=== PATIENT | female | born 1965 | race Caucasian/White ===

== ENCOUNTER 2020-07-07 11:45 | Outpatient (REF) | payer OTHER, SELFPAY ==
[2020-07-07 12:48] LABS: MANUAL DIFF FLAG NO
[2020-07-07 12:54] LABS: Glucose Urine UA NEG (NEG); Leukocyte Esterase Urine NEG (NEG); Nitrite Urine NEG (NEG); Specific Gravity - Urine 1.015 (1.005-1.025); Urine Blood TRACE (NEG); Urine Ketones NEG (NEG); Urine Protein NEG (NEG-TRACE)
[2020-07-07 12:57] LABS: Basophils Absolute Auto 0.1 X10*3/uL (0.0-0.2); Basophils Percent Auto 0.5 % (0-2); Eosinophils Absolute Auto 0.1 X10*3/uL (0.0-0.4); Eosinophils Percent Auto 0.9 % (0-4); Hematocrit 43.9 % (37-47); Hemoglobin 14.3 g/dl (12.0-16.0); Imm Gran Abs Auto 0.02 X10*3/uL (0.00-0.03); Imm Gran Pct Auto 0.2 % (0.0-0.4); Lymphocytes Absolute Auto 2.9 X10*3/uL (1.2-4.9); Lymphocytes Percent Auto 31.4 % (20-40); Mean Corpuscular HGB Conc 32.6 g/dl (31.0-35.0); Mean Corpuscular Hemoglobin 31.5 pg (27.0-33.0); Mean Corpuscular Volume 96.7 fL (80-98); Mean Platelet Volume 10.4 fL (9.4-12.3); Monocytes Absolute Auto 0.6 X10*3/uL (0.1-1.2); Monocytes Percent Auto 6.2 % (2-11); Neutrophils Absolute Auto 5.6 X10*3/uL (2.0-8.3); Neutrophils Percent Auto 60.8 % (45-73); Platelet Count 375 X10*3/uL (160-400); Red Blood Count 4.54 X10*6/uL (4.20-5.50); Red Cell Distribution Width 11.8 % (11.0-16.0); White Blood Count 9.2 X10*3/uL (4.8-10.8)
[2020-07-07 13:04] LABS: Appearance Urine CLEAR; Color Urine YELLOW
[2020-07-07 13:09] LABS: Alanine Aminotransferase 20 U/L (0-31); Albumin Level 3.8 g/dL (3.5-5.0); Alkaline Phosphatase 57 U/L (39-117); Anion Gap 14 (12-20); Aspartate Amino Transferase 15 U/L (5-31); Bilirubin Total 0.9 mg/dL (0.0-1.0); Blood Urea Nitrogen 20 mg/dL (9-16); C Reactive Protein 0.68 mg/dL (< or = 0.50); Calcium 8.9 mg/dL (8.4-10.2); Carbon Dioxide 25 mmol/L (22-29); Chloride 103 mmol/L (96-108); Estimated Glomerular Filt Rate > 60; Glucose Random 66 mg/dL (60-115); Potassium 4.7 mmol/L (3.3-5.1); Sodium 137 mmol/L (135-145); Total Protein 6.5 g/dL (6.5-8.0)
[2020-07-07 14:03] LABS: Erythrocyte Sedimentation Rate 6 MM/HR (0-20)
[2020-07-07 14:40] LABS: Bacteria Urine TRACE /LPF; RBC Urine 0-2 /HPF (0); Squamous Epithelial Cell Urine 4+ /LPF; WBC Urine 0 /HPF (0-4)
[2020-07-08 14:16] LABS: Complement C3 131 mg/dL (83-193)
[2020-07-08 14:42] LABS: Anti DNA DS Antibody 2 IU/mL
== END 2020-07-07 11:46 | disposition home or self-care (01) ==
LOC: HO.LAB 11:45
PROVIDERS: PCP Registered Nurse Rehabilitation; Visit Provider Student in an Organized Health Care Education/Training Program
DX: R76.8 Other specified abnormal immunological findings in serum (principal)
CPT/HCPCS: 36415; 80053; 81001; 85025; 85652; 86140; 86160; 86225

== ENCOUNTER → 2020-09-16 16:07 | Outpatient (BNVA) | payer OTHER, SELFPAY | PROVIDERS: Visit Provider Student in an Organized Health Care Education/Training Program ==

== ENCOUNTER 2021-10-31 15:25 | Outpatient (REF) | payer OTHER, SELFPAY ==
[2021-10-31 15:47] LABS: MANUAL DIFF FLAG NO
[2021-10-31 16:32] LABS: Basophils Absolute Auto 0.1 X10*3/uL (0.0-0.2); Basophils Percent Auto 0.8 % (0-2); Eosinophils Absolute Auto 0.1 X10*3/uL (0.0-0.4); Eosinophils Percent Auto 1.4 % (0-4); Hematocrit 43.4 % (37.0-47.0); Hemoglobin 14.9 g/dl (12.0-16.0); Imm Gran Abs Auto 0.01 X10*3/uL (0.00-0.03); Imm Gran Pct Auto 0.1 % (0.0-0.4); Lymphocytes Absolute Auto 3.5 X10*3/uL (1.2-4.9); Mean Corpuscular HGB Conc 34.3 g/dl (31.0-35.0); Mean Corpuscular Hemoglobin 32.3 pg (27.0-33.0); Mean Corpuscular Volume 94.1 fL (80.0-98.0); Mean Platelet Volume 10.6 fL (9.4-12.3); Monocytes Absolute Auto 0.7 X10*3/uL (0.1-1.2); Monocytes Percent Auto 7.8 % (2-11); Neutrophils Percent Auto 47.9 % (45-73); Platelet Count 370 X10*3/uL (160-400); Red Blood Count 4.61 X10*6/uL (4.20-5.50); Red Cell Distribution Width 11.8 % (11.0-16.0); White Blood Count 8.3 X10*3/uL (4.8-10.8)
[2021-10-31 16:48] LABS: Alanine Aminotransferase 49 U/L (0-31); Albumin Level 3.9 g/dL (3.5-5.0); Alkaline Phosphatase 88 U/L (39-117); Anion Gap 13 (12-20); Aspartate Amino Transferase 23 U/L (5-31); Bilirubin Total 0.9 mg/dL (0.0-1.0); Blood Urea Nitrogen 12 mg/dL (9-16); C Reactive Protein 0.17 mg/dL (< or = 0.50); Carbon Dioxide 27 mmol/L (22-29); Chloride 105 mmol/L (96-108); Estimated Glomerular Filt Rate > 60; Glucose Random 97 mg/dL (60-115); Potassium 4.5 mmol/L (3.3-5.1); Sodium 140 mmol/L (135-145)
[2021-10-31 17:17] LABS: Erythrocyte Sedimentation Rate 7 MM/HR (0-20)
[2021-10-31 18:25] LABS: Creatinine Urine 121.95 mg/dL; Total Protein Urine Random < 7 mg/dL (<12)
[2021-11-01 12:17] LABS: Anti DNA DS Antibody 2 IU/mL
== END 2021-10-31 15:26 | disposition home or self-care (01) ==
LOC: HO.LAB 15:25
PROVIDERS: PCP Family Medicine; Visit Provider Internal Medicine Rheumatology
DX: R76.8 Other specified abnormal immunological findings in serum (principal)
CPT/HCPCS: 36415; 80053; 84156; 85025; 85652; 86140; 86225

== ENCOUNTER 2022-10-23 08:53 | Outpatient (AMB) | payer OTHER, SELFPAY ==
[2022-10-23 09:04] VITALS: BP 114/74; PULSE 78; TEMP 36.6; O2SAT 98; BMI 34.3
--- NOTE | 2022-10-23 09:04 | A.OFFVIS_ITS ---
Intake Vital Signs 10/23/22 09:04 Height 5 ft 3 in Weight 193 lb 9.054 oz BMI 34.3 BP 114/74 Blood Pressure Location Rt brachial Position Sitting Pulse 78 Pulse Source Pulse Oximeter Temp 97.8 F Temp Source Skin Pulse Oximetry (%) 98 Intake Visit Reasons: anat Intake Note: Pt seen today for 1 year follow up. States she has same symptoms; left knee stairs cause pain. Right shoulder pain- starts PT in November ordered by PCP. Also mentions dry eyes sees Dr Atwood in [place] Strain Technician Required: No Accompanied by: Self / Same As Patient Allergies Sulfa (Sulfonamide Antibiotics) Allergy (Intermediate, Verified 10/23/22 09:10) rash HPI HPI Comments History of Present Illness Details The patient returns for evaluation of her history of positive ANAT. She had been seen in the past by Dr. Anderson and I saw her last fall. There was no sign of an active inflammatory arthritis. There were similar negative findings last December when I had seen her. She continues to have pain in the right knee, usually with stairs. She gets some intermittent right shoulder pain over the past few weeks. Apparently she has been referred to physical therapy for that. Occasionally she gets Raynaud's symptoms as well. She describes dry eyes. This has been treated by an string top sealer with Restasis and Xiidra eye drops. Those were not helpful so recently she acquired punctal plugs. She is disappointed that those have not help with the dryness as well. There is some dryness in the mouth but that is no where near as significantly bothersome. 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 Negative for vision change, headaches and dizziness ENT Details: Occasional dry mouth. Negative for hearing change, tinnitus, oral ulcer, nose bleeds Card Details: Negative chest pain, edema and syncope Resp Details: Negative for SOB, cough and wheezing GI Details: Negative indigestion/heartburn, nausea, abdominal pain, bowel changes, diarrhea, constipation and bloody stool. Skin/Breast Details: Negative for itching, rash, hives, Raynaud's symptoms, sun sensitivity, and skin cancer Endo Details: Negative for polyuria and polydypsia Deondre/Lymph Details: Negative for excessive bruising or bleeding. Physical Exam Vital Signs: Last Vital Signs Temp 97.8 F 10/23/22 09:04 Pulse 78 10/23/22 09:04 BP 114/74 10/23/22 09:04 Pulse Ox 98 10/23/22 09:04 BMI result Body Mass Index 34.3 APPEARANCE: Patient in no acute distress EYES no redness, pupils equal and reactive to light, eyelids normal THROAT: Oral mucosa moist, no ulcerations NECK: No thyromegaly or masses, no adenopathy, trachea midline. HEART: Regulrar rhythm, S1-S2 heard, no murmurs, rubs or gallops. LUNG: Clear to percussion and auscultation ABD: Normal bowel sounds, no organomegaly, masses or tenderness. EXTREMITIES: No edema, no calf tenderness, normal peripheral pulses. NEURO: Oriented and alert x3. No focal weakness. Reflexes symmetric. Gait normal. SKIN: No inflammatory or neoplastic lesions. Normal color and turgor. Some irregularity at the right 3rd fingernail. It looks like she has had some cuticle inflammation with some slight redness there and there is some ridging on the nail. No pitting. No other nail seem to be involved. JOINT EXAM:?? Cervical Spine:.? Full range of motion without pain; no tenderness. Thoracic Spine:.? No scoliosis.? No tenderness on palpation. Lumbar Spine:.? Alignment normal.? Full range of motion without pain, no tenderness. Chest Wall:.? No tenderness, swelling, increased warmth or erythema. Hands:.? Right:? Mild bony enlargement at the thumb IP in slight bony enlargement at the 2nd and 3rd PIP joints.? The 3rd PIP is slightly tender but other areas are not tender.? There is no sensory loss or thenar atrophy.? No objective signs of Raynaud's phenomena.? Left:? There is some flexion deformity and lateral deviation at the 4th middle phalanx.? That 4th PIP has limited range of motion and some slight bony enlargement and minimal tenderness.? She says this is from old fracture.? There are no objective signs of Raynaud's phenomena, thenar atrophy or sensory loss. Wrists:.? Normal pain-free range of motion without tenderness, swelling, increased warmth or erythema.? Negative Phalen's and Tinel signs. Elbows:. Normal pain-free range of motion without tenderness, swelling, increased warmth or erythema. Shoulders:.? Right: Mild discomfort with abduction at 150 degrees or with extremes of internal or external rotation. Mild anterior tenderness with questionable abductor weakness but no swelling or adenopathy.? Full range of motion without pain. No tenderness, weakness, swelling, increased warmth or erythema. Hips:.? Full range of motion without pain. Hip bursa:.? No tenderness. Knees:.??Right: Pain-free range of motion with some mild patellofemoral crepitus. There is some medial compartment tenderness but no redness or effusion. Left: Normal pain-free range of motion with mild patellofemoral crepitus but no effusion, tenderness, swelling, increased warmth or erythema.? Ankles:.? Normal pain-free range of motion without tenderness, swelling, increased warmth or erythema. Feet:.? Normal pain-free range of motion without tenderness, swelling, increased warmth or erythema. Tender points:.? No tenderness to digital palpation at the occiput, trapezius, second rib, lateral epicondyle, knees, greater trochanter and gluteal area bilaterally. ? Results Reviewed Results Reviewed: Laboratory Tests 10/31/21 10/31/21 10/31/21 15:46 15:46 15:46 WBC 8.3 Hgb 14.9 ESR 7 Creatinine 0.77 U Random Total Protein Double Strand DNA Ab 10/31/21 10/31/21 15:46 15:49 WBC Hgb ESR Creatinine U Random Total Protein < 7 Double Strand DNA Ab 2 Assessment & Plan Assessment & Plan (1) ANAT positive: Code(s): R76.8 - Other specified abnormal immunological findings in serum (2) Chondromalacia of both patellae: Code(s): M22.41 - Chondromalacia patellae, right knee; M22.42 - Chondromalacia patellae, left knee (3) Raynauds disease: Code(s): I73.00 - Raynaud's syndrome without gangrene (4) Dry eye syndrome: Code(s): H04.129 - Dry eye syndrome of unspecified lacrimal gland Plan She still is no evidence of an active inflammatory arthritis. She has a bigger complaint now of the ocular dryness. It looks like from review of the chart that a Sjogren's antibody test was ordered in the past but I can not find the results. The ANAT is positive and she has Raynaud's symptoms but again no sign of underlying associated autoimmune inflammatory disease. We will check some chemistries, CBC and inflammatory markers to look into that further. We will get back to her with the results. Quadriceps exercises are demonstrated for her. This should help with the chondromalacia patellae. Physical therapy referral could also be considered. A follow-up in a year might be reasonable if she still has symptoms. Today's history, physical exam, and review of the records took 32 minutes. Orders: Orders C Reactive Protein Today R76.8 - Other specified abnormal immunological findings in serum Protein Creatinine Ratio, Ur Today R76.8 - Other specified abnormal immunological findings in serum Complete Blood Count Auto Diff Today R76.8 - Other specified abnormal immunological findings in serum Erythrocyte Sedimentation Rate Today R76.8 - Other specified abnormal immunological findings in serum Anti DNA DS Antibody Today R76.8 - Other specified abnormal immunological findings in serum Comprehensive Met. Panel Today R76.8 - Other specified abnormal immunological findings in serum Sjogren's Antibodies Today H04.129 - Dry eye syndrome of unspecified lacrimal gland, R76.8 - Other specified abnormal immunological findings in serum Coding Level of Care Code Est Pt Level 4 (83087) Diagnoses ANAT positive R76.8 Chondromalacia of both patellae M22.41; M22.42 Raynauds disease I73.00 Dry eye syndrome H04.129
== END 2022-10-23 09:52 | disposition home or self-care (01) ==
PROVIDERS: PCP Family Medicine; Visit Provider Internal Medicine Rheumatology
DX: R76.8 Other specified abnormal immunological findings in serum (principal); M22.41 Chondromalacia patellae, right knee; M22.42 Chondromalacia patellae, left knee; I73.00 Raynaud's syndrome without gangrene; H04.129 Dry eye syndrome of unspecified lacrimal gland
CPT/HCPCS: 99214

== ENCOUNTER → 2022-10-23 08:53 | Outpatient (BNVA) | payer OTHER, SELFPAY | PROVIDERS: PCP Family Medicine; Visit Provider Internal Medicine Rheumatology ==

== ENCOUNTER 2022-10-23 10:00 | Outpatient (REF) | payer OTHER, SELFPAY ==
[2022-10-23 10:46] LABS: Creatinine Urine 98.44 mg/dL; Protein/Creatinine Ratio, Ur 0.08 (<0.2); Total Protein Urine Random 8 mg/dL (<12)
[2022-10-23 11:18] LABS: MANUAL DIFF FLAG NO
[2022-10-23 11:23] LABS: Basophils Absolute Auto 0.1 X10*3/uL (0.0-0.2); Basophils Percent Auto 0.8 % (0-2); Eosinophils Absolute Auto 0.1 X10*3/uL (0.0-0.4); Imm Gran Abs Auto 0.02 X10*3/uL (0.00-0.03); Imm Gran Pct Auto 0.2 % (0.0-0.4); Lymphocytes Absolute Auto 2.7 X10*3/uL (1.2-4.9); Lymphocytes Percent Auto 32.6 % (20-40); Mean Corpuscular Hemoglobin 31.9 pg (27.0-33.0); Mean Corpuscular Volume 93.6 fL (80.0-98.0); Mean Platelet Volume 10.5 fL (9.4-12.3); Monocytes Absolute Auto 0.6 X10*3/uL (0.1-1.2); Monocytes Percent Auto 7.6 % (2-11); Neutrophils Absolute Auto 4.8 x10*3/uL (2.0-8.3); Neutrophils Percent Auto 57.8 % (45-73); Platelet Count 351 X10*3/uL (160-400); Red Blood Count 5.02 X10*6/uL (4.20-5.50); Red Cell Distribution Width 11.2 % (11.0-16.0); White Blood Count 8.3 X10*3/uL (4.8-10.8)
[2022-10-23 12:09] LABS: Erythrocyte Sedimentation Rate 7 MM/HR (0-20)
[2022-10-23 12:38] LABS: Alanine Aminotransferase 19 U/L (0-31); Alkaline Phosphatase 98 U/L (39-117); Anion Gap 12 (12-20); Aspartate Amino Transferase 15 U/L (5-31); Blood Urea Nitrogen 21 mg/dL (9-16); C Reactive Protein 0.11 mg/dL (< or = 0.50); Calcium 9.4 mg/dL (8.4-10.2); Carbon Dioxide 28 mmol/L (22-29); Chloride 106 mmol/L (96-108); Estimated Glomerular Filt Rate > 60; Glucose Random 89 mg/dL (60-115); Potassium 4.5 mmol/L (3.3-5.1); Sodium 141 mmol/L (135-145); Total Protein 7.2 g/dL (6.5-8.0)
[2022-10-25 17:34] LABS: Anti DNA DS Antibody 2 IU/mL; Antibody to SS-A Antigen <1.0 NEG AI (<1.0 NEG); Antibody to SS-B Antigen <1.0 NEG AI (<1.0 NEG)
== END 2022-10-23 10:01 | disposition home or self-care (01) ==
LOC: HO.10HDL 10:00
PROVIDERS: Visit Provider Internal Medicine Rheumatology
DX: R76.8 Other specified abnormal immunological findings in serum (principal); H04.129 Dry eye syndrome of unspecified lacrimal gland
CPT/HCPCS: 36415; 80053; 84156; 85025; 85652; 86140; 86225; 86235

== ENCOUNTER 2023-10-24 09:24 | Outpatient (AMB) | payer OTHER, SELFPAY ==
--- NOTE | 2023-10-24 09:26 | MHC.OFFVIS ---
Vital Signs 10/24/23 09:37 Height 5 ft 3 in Weight 200 lb 13.458 oz BMI 35.6 BP 112/70 Blood Pressure Location Lt brachial Position Sitting Respiration 16 Pulse 90 Pulse Source Pulse Oximeter Pulse Oximetry (%) 96 Oxygen Delivery Method Room Air Intake Visit Reasons: DAMARIS/CM Intake Note: Patient presents for DAMARIS. Allergies Sulfa (Sulfonamide Antibiotics) Allergy (Intermediate, Verified 10/24/23 09:29) rash Medication List - Last Reconciled 10/24/23 by Angelo Zuluaga MD albuterol sulfate 90 mcg/actuation inhalation PRN cetirizine (Zyrtec) 10 mg PO DAILY PRN cholecalciferol (vitamin D3) 25 mcg PO DAILY cyclosporine 0.05% (Restasis) 1 drp ophthalmic (eye) Q12H estradiol 0.5 mg PO DAILY famotidine 20 mg PO BEDTIME fluticasone propionate 50 mcg/actuation 1 spray intranasal DAILY PRN magnesium 400 mg PO DAILY melatonin mg PO [id number] 1 tab PO DAILY omeprazole 20 mg PO DAILY pravastatin 40 mg PO DAILY progesterone micronized 100 mg PO QAM turmeric root extract 500 mg PO DAILY HPI Comments Details: This is a 57-year-old female who returns for follow-up. Patient has been evaluated by Dr. Leonard since 2019 for a positive [address] 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 Symptoms of arthralgias, sicca symptoms, Raynaud's. Hydroxychloroquine was considered but patient not want to take it. Since then she had been monitored yearly. Patient states that he developed right shoulder pain and stiffness. She was evaluated by Orthopedics and had a right shoulder MRI which showed bursitis and a small tendon hair, she received a steroid shot which was helpful for at least 3 months. She continues to have some right shoulder aches. She gets intermittent swelling of her right foot but no significant pain. Denies any significant rashes. She continues to have significant dry eyes and is on multiple eyedrops. She takes turmeric 1000 mg daily. She denies any fevers or weight loss. 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 Review of Systems Eyes Reports dry eyes ENT Reports dry mouth Musc Reports arthralgias, Reports joint swelling and Reports stiffness Physical Exam Vital Signs: Last Vital Signs Pulse 90 10/24/23 09:37 Resp 16 10/24/23 09:37 BP 112/70 10/24/23 09:37 Pulse Ox 96 10/24/23 09:37 Oxygen Delivery Method Room Air 10/24/23 09:37 BMI result Body Mass Index 35.6 Const General: cooperative, healthy appearing and comfortable Nutritional Appearance: obese Orientation/consciousness: patient oriented x3 Limitations: no limitations HEENT Head: Yes normocephalic and Yes atraumatic Mouth: moist mucous membranes Resp Effort & Inspection: normal respiratory effort and able to speak in complete sentences Auscultation: clear to auscultation bilaterally Cardio Rate: regular rate Rhythm: regular rhythm Skin General skin exam: no rashes or lesions noted Neuro General: patient oriented x3 Extrem Other: No active synovitis Negative MCP squeeze test Normal bilateral hand nursing manager strength Normal nailfold capillaroscopy No elbow pain with flexion and extension Normal range of motion of shoulders No knee pain with full flexion-extension No ankle swelling and tenderness bilaterally Negative MTP squeeze test Results Reviewed Results Reviewed: Labs 09/[address] Leonard? [place] level normal? C3 normal? C4 normal? CPK normal? CMP unremarkable CBC unremarkable Free T4 normal TSH normal RF/HLA B27/beta 2 glycoprotein IgG/beta 2 glycoprotein IgM/cardiolipin IgG/cardiolipin IgM/DNA Crithidia/SSA/SSB/Ruiz/CONTINUOUS VULCANIZING MACHINE OPERATOR/ CCP/Jolene 1/TPO? all negative DAMARIS 1-1280 dfs pattern Assessment & Plan Assessment & Plan (1) DAMARIS positive: Code(s): R76.8 - Other specified abnormal immunological findings in serum Category: Medical Plan: This is a 57-year-old female who presents for evaluation of a positive DAMARIS patient has had a positive DAMARIS 1-12 80 dfs pattern with negative sub serologies. Dr. Leonard suggested hydroxychloroquine for incomplete lupus/UCTD based on arthralgias, sicca symptoms, Raynaud's. Patient did not want to take any medications. Since then patient has been followed about yearly with repeat labs, she continues to have negative sub serologies. On exam I still do not see any meme signs of autoimmune rheumatic disease. Clinical picture more consistent degenerative arthritis. Advised patient to use a Biotene Biotene mouth 4/mirella for dry mouth, increase turmeric to 2000 mg daily Discussed symptoms and signs that are suggestive of an autoimmune rheumatic disease. Advised patient to call the clinic and we can see her sooner Re-evaluate in 1 year Plan I spent 25 minutes reviewing patient's chart, evaluating patient, counseling patient and documenting in the chart Coding Level of Care Code Est Pt Level 3 (37280) Diagnoses DAMARIS positive R76.8
[2023-10-24 09:37] VITALS: BP 112/70; PULSE 90; RESP 16; O2SAT 96; BMI 35.6
== END 2023-10-24 10:06 | disposition home or self-care (01) ==
PROVIDERS: Visit Provider Student in an Organized Health Care Education/Training Program
DX: R76.8 Other specified abnormal immunological findings in serum (principal)
CPT/HCPCS: 99213

== ENCOUNTER → 2023-10-24 09:24 | Outpatient (BNVA) | payer OTHER, SELFPAY | PROVIDERS: PCP Family Medicine; Visit Provider Student in an Organized Health Care Education/Training Program ==